=== PATIENT | male | born 1985 | race Two or more races ===

== ENCOUNTER 2016-09-13 16:27 | Emergency (ER) | payer OTHER ==
[2016-09-13 16:50] VITALS: PULSE 90; RESP 14; TEMP 99; O2SAT 94
--- NOTE | 2016-09-13 17:39 | UCPHY ---
H & P Time Seen by Provider: 09/13/16 17:17 Patient Type: New HPI/ROS: CHIEF COMPLAINT: sore throat, nasal congestion, rhinorrhea HISTORY OF PRESENT ILLNESS: 31-year-old male presents to urgent care with sore throat, nasal congestion rhinorrhea over the last 3 days. The patient wants to make sure that he does not have strep throat since his is 8 weeks . He denies chest pain or difficulty breathing. He traveled to [place] recently with college students for a conference and states that he did not sleep much and came home feeling ill. No vomiting or diarrhea. No other travel. No fevers or chills. ROS: No dysphagia, rash, abdominal pain, headache Past Medical/Surgical History: Negative Social History: . 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 Smoking Status: Never smoked Physical Exam: Nontoxic appearing. Temperature 37.2. 94% on room air. Ears are clear. Mild posterior pharyngeal injection noted without exudate. Neck is supple without lymphadenopathy. Chest is clear to auscultation without wheezing, rhonchi or rales. Heart regular rate rhythm without murmur. Constitutional: Initial Vital Signs Temperature (C) 37.2 C 09/13/16 16:43 Heart Rate 90 09/13/16 16:43 Respiratory Rate 14 09/13/16 16:43 O2 Sat (%) 94 09/13/16 16:43 O2 Delivery Mode Room Air Allergies/Adverse Reactions: No Known Allergies Allergy (Unverified 09/13/16 16:43) Home Medications: Medication Instructions Recorded NK [No Known Home Meds] 09/13/16 MDM/Departure - MDM ED Course/Re-evaluation: Rapid strep test was negative. Patient will call for the results of his throat culture in 48 hours. He will continue ibuprofen or Tylenol for pain. He was instructed to return if he had any change in symptoms or if he felt difficulty swallowing or felt worse in any way. - Depart Disposition: Home, Routine, Self-Care Clinical Impression: Upper respiratory infection Qualifiers: Qualifier Code: (J06.9) Acute upper respiratory infection, unspecified Condition: Good Instructions: Upper Respiratory Infection (ED) Additional Instructions: Call [phone] for the results of your throat culture in 48 hours. Adult Pain & Fever Control: We recommend Acetaminophen (Tylenol) and Ibuprofen (Motrin,Advil) for pain and fever control. When fever is high or pain severe, both drugs can be used at the same time, but at different intervals. Please note the time differences. Your dose is: Acetaminophen 1000mg every 4 to 6 hours Ibuprofen 600mg every 8 hours with food Note: do not take Acetaminophen with Hydrocodone (Vicodin, Lortab) or Oycodone (Percocet). These medications also contain Acetaminophen. No more than 3000mg of Acetaminophen should be taken in 24 hours (for an adult). Referrals: Mary Ramirez MD [Primary Care Provider] - As per Instructions - PQRS PQRS Measurement: Not applicable
== END 2016-09-13 17:49 | disposition home or self-care (01) ==
LOC: CED 16:27
DX: J06.9 Acute upper respiratory infection, unspecified (principal)
CPT/HCPCS: 87880-PO; 99203-PO; G0463-PO